=== PATIENT | female | born 1970 | race Caucasian/White ===

== ENCOUNTER 2017-06-03 07:28 | Day surgery (SDC) | payer OTHER ==
[~2017-06-03] VITALS: Ht 157.5 cm; Wt 91.9 kg
[2017-06-03] MEDS ORDERED: SOD CHLORIDE 0.9% 1,000 ML IV SCH (08:02)
[2017-06-03] MEDS ORDERED: PARO40TA48 PO (08:36)
[2017-06-03] MEDS ORDERED: BUPR1FIL3 SL (08:37)
[2017-06-03] MEDS ORDERED: FER325 PO (08:38)
[2017-06-03] MEDS ORDERED: ASCO500C7 PO (08:38)
[2017-06-03] MEDS ORDERED: CHOL100062 PO (08:38)
[2017-06-03 08:54] VITALS: Ht 157.5 cm; Wt 91.9 kg
[2017-06-03 09:05] VITALS: BP 117/65; PULSE 87; RESP 16
[2017-06-03] MEDS ORDERED: LIDOCAINE 1% (MDV) 20 ML INJ ONE (09:11)
[2017-06-03] MEDS ORDERED: DIPHENHYDRAMINE 50 MG INJ ONE (09:43)
[2017-06-03] MEDS ORDERED: FENTAnyl 50 MCG/ML VIAL ONE (09:43)
[2017-06-03 11:50] VITALS: BP 119/76; PULSE 80; RESP 20
--- NOTE | 2017-06-03 11:50 | RADRPT ---
PROCEDURE: Ultrasound guided left neck lymph node biopsy. CLINICAL INDICATION: Left neck lymphadenopathy. TECHNIQUE: Prior to the procedure, informed consent was obtained. Risks including bleeding and in fection were explained to the patient. The patient understood and once willing to proceed. A proced ural pause was performed. The patient's name, date of , and procedure to be performed were sebastian ified. Using local anesthetic, sterile technique and ultrasound guidance, a 20-gauge automated core biopsy needle was used to biopsy of the lymphadenopathy in the left supraclavicular region. Multiple passe s were made. Adequate tissue was obtained according to the pathologist present during the biopsy. Specimens were sent for histology as well as culture and sensitivity. The patient tolerated the pro cedure well. COMPARISON: CT scan from outside facility. FINDINGS: Images demonstrate the left neck supraclavicular lymphadenopathy and subsequent images demonstrate n eedle within the left supraclavicular lymphadenopathy. IMPRESSION: 1. Satisfactory ultrasound-guided left neck supraclavicular lymphadenopathy biopsy. RPTAT: QQ .Leobardo Werner MD, MD Date Time Electronically viewed and signed by .Leobardo Werner MD, on 06/03/2017 11:50 .R/
[2017-06-03 11:55] VITALS: BP 125/78; PULSE 82; RESP 18
[2017-06-03 12:00] VITALS: BP 125/76; PULSE 80; RESP 15
[2017-06-03 12:20] VITALS: BP 117/71; PULSE 82; RESP 17
[2017-06-03] MEDS ORDERED: HYDROCODONE/APAP (5/325) TAB PO PRN (13:30)
--- NOTE | 2017-06-03 17:26 | RADRPT ---
PROCEDURE: Ultrasound of the soft tissues of the left neck. CLINICAL INDICATION: Left supraclavicular lymphadenopathy. TECHNIQUE: High-resolution sonography of the left neck supraclavicular region was performed in the axial and sagittal planes. COMPARISON: None FINDINGS: There are 2 adjacent lymph nodes in the left supraclavicular region measuring 1.4 x 0.9 cm and 1.5 x 1.2 cm. There is no other cystic or solid mass. IMPRESSION: 1. Left supraclavicular lymph nodes. 2. These were subsequently biopsied with ultrasound guidance. RPTAT: QQ .Leobardo Werner MD, MD Date Time Electronically viewed and signed by .Leobardo Werner MD, on 06/03/2017 17:26 .R/
--- NOTE | 2017-06-03 17:29 | RADRPT ---
PROCEDURE: CT scan of the soft tissues of the neck without contrast. CLINICAL INDICATION: Cervical lymphadenopathy. TECHNIQUE: Helical axial sections were obtained through the soft tissues of the neck without intra venous contrast enhancement. Sagittal and coronal formatted images were accomplished using the data from the axial images. Total exam DLP is unobtainable mGy-cm. CTDIvol is unobtainable mGy. One or more of the following dose reduction techniques were used: Automated exposure control, adjustment o f the mA and/or kV according to patient size, use of iterative reconstruction technique. COMPARISON: Images from an outside facility. FINDINGS: There is mild left supraclavicular lymphadenopathy which is not well seen. Smaller lymph nodes are present in the region of the angle of the mandible on the left. The airway is intact. The epiglottis is normal. Bones are grossly normal. The lung apices are normal. IMPRESSION: 1. Left supraclavicular lymphadenopathy not well seen. The scan was performed initially to evaluate for CT-guided biopsy of left supraclavicular lymphadenopathy. However, ultrasound was subsequently performed which demonstrates the lymphadenopathy to better advantage. Therefore, ultrasound was subs equently used as guidance for left supraclavicular lymphadenopathy biopsy. RPTAT: QQ .Leobardo Werner MD, MD Date Time Electronically viewed and signed by .Leobardo Werner MD, on 06/03/2017 17:28 .R/
--- NOTE | 2017-06-05 12:25 | HP ---
DATE OF ADMISSION: 06/03/2017 INDICATION: This is a 46-year-old female with enlarged lymph node. She has been having some fevers , body aches and generalized malaise. PAST MEDICAL HISTORY: She admits to depression. PAST SURGICAL HISTORY: None. ALLERGIES: NONE. SOCIAL HISTORY: Tobacco use 3/4 of a pack per day for 29 years. Also history of opioid addiction. PHYSICAL EXAMINATION: She has bilateral axillary and bilateral groin lymph nodes that are palpable and firm. GENERAL: Well-nourished female. CARDIOVASCULAR: Regular rate and rhythm. LUNGS: Clear to auscultation. ABDOMEN: Soft, nontender. EXTREMITIES: Warm. NEUROLOGIC: No gross focal deficits. ASSESSMENT AND PLAN: This is a 46-year-old female with fevers, B type symptoms, body aches, malaise with enlarged lymph nodes. We will schedule CT-guided lymph node biopsy. Dictated By: REMY HIGGINS/OLEGARIO Conf#: [id number] DID#: [id number]
== END 2017-06-03 13:25 | disposition home or self-care (01) ==
LOC: SDS 07:28
PROVIDERS: ATTEND Surgery Surgical Oncology
DX: R59.0 Localized enlarged lymph nodes (principal); F17.200 Nicotine dependence, unspecified, uncomplicated
CPT/HCPCS: 38505; 70490; 76536; 76942; 87070; 87075; 87102; 87116; 88307; 88312; 88313; J1200; J3010; Z7610